=== PATIENT | male | born 1990 | race African-American/Black ===

== ENCOUNTER 2022-05-21 08:14 | Emergency (ER) | payer MEDICAID, OTHER ==
[~2022-05-21] VITALS: Ht 185.4 cm; Wt 84.2 kg
[2022-05-21] MEDS ORDERED: KETOROLAC TROMETH 30 MG/ML 1ML VIAL IM ONE (09:30)
[2022-05-21 09:54] VITALS: BP 141/80
== END 2022-05-21 14:15 | disposition home or self-care (01) ==
LOC: ER 08:14
DX: S20.211A Contusion of right front wall of thorax, initial encounter (principal); S70.01XA Contusion of right hip, initial encounter; S70.11XA Contusion of right thigh, initial encounter; S83.91XA Sprain of unspecified site of right knee, initial encounter; W01.0XXA Fall on same level from slipping, tripping and stumbling without subsequent striking against object, initial encounter; Y93.89 Activity, other specified; Y92.89 Other specified places as the place of occurrence of the external cause; Y99.8 Other external cause status
CPT/HCPCS: 71101; 73130; 73502; 73552; 73562; 96372; 99284; J1885

== ENCOUNTER 2023-10-29 19:25 | Emergency (ER) | payer MEDICAID ==
[~2023-10-29] VITALS: Ht 185.4 cm; Wt 82.0 kg
[2023-10-29 19:25] VITALS: BP 137/86; PULSE 86; RESP 20; TEMP 97.8
[~2023-10-29 19:25] MED LIST: IBUP-1456 PO; METH-1182 PO
[2023-10-29] MEDS ORDERED: ACET500T58 PO (21:49)
[2023-10-29] MEDS ORDERED: CYCL-837 PO (21:49)
[2023-10-29 22:01] VITALS: O2SAT 97
[2023-10-29] MEDS: ONDANSETRON ODT 4 MG TAB PO ONE (22:17)
[2023-10-29] MEDS: HYDROcodone-ACET 5/325MG TAB PO ONE (22:17)
== END 2023-10-30 01:20 | disposition home or self-care (01) ==
LOC: ER 19:25
DX: S29.012A Strain of muscle and tendon of back wall of thorax, initial encounter (principal); M16.12 Unilateral primary osteoarthritis, left hip; R51.9 Headache, unspecified; G89.29 Other chronic pain; R53.1 Weakness; Z87.820 Personal history of traumatic brain injury; V43.52XA Car driver injured in collision with other type car in traffic accident, initial encounter; Y93.89 Activity, other specified; Y92.89 Other specified places as the place of occurrence of the external cause; Y99.8 Other external cause status
CPT/HCPCS: 70450; 72070; 72192; 73502; 99284; Q0162